=== PATIENT | female | born 1995 | race Caucasian/White ===

== ENCOUNTER 2018-06-07 19:29 | Emergency (ER) | payer OTHER ==
[~2018-06-07] VITALS: Ht 157.5 cm; Wt 60.0 kg
[2018-06-07 20:22] VITALS: BP 121/56
== END 2018-06-07 20:46 | disposition home or self-care (01) ==
LOC: ED 20:10
DX: F41.1 Generalized anxiety disorder (principal); R06.4 Hyperventilation
CPT/HCPCS: 93005; 99284